=== PATIENT | female | born 1990 | race Two or more races ===

== ENCOUNTER 2023-12-04 19:13 | Emergency (ER) | payer OTHER ==
[~2023-12-04] VITALS: Ht 160 cm; Wt 90.7 kg
[2023-12-04] MEDS ORDERED: LEVOTHYROXINE25 MCG (19:41)
[2023-12-04] MEDS ORDERED: FAMOTIDINE/PF 20 MG/2 ML VIAL IV PUSH ONE (22:30)
== END 2023-12-05 05:52 | disposition home or self-care (01) ==
LOC: ER 19:13
DX: M94.0 Chondrocostal junction syndrome [Tietze] (principal); R10.13 Epigastric pain; E03.8 Other specified hypothyroidism; Z91.013 Allergy to seafood